=== PATIENT | male | born 1990 | race Caucasian/White ===

== ENCOUNTER → 2016-02-22 | Outpatient (CLI) | payer BC ==
--- NOTE | 2016-02-22 17:56 | DX ---
Chest, PA Upright and Lateral Views, February 22, 2016 at 5:13 p.m. Clinical History: 25-year-old male with a cough, fatigue, and shortness of breath, with dyspnea ongo ing for three weeks. ICD-10 Diagnostic Codes: R05, R06.02, and R53.83. Comparison Study: None. Findings: The lungs are well-expanded, with an inspiratory depth between the 11th and 12th posterior rib levels, and there is mild central perihilar bronchial wall thickening. The above features may r eflect a virally-mediated bronchitis/bronchiolitis, however, reactive airways' disease could have a s imilar appearance. There is no focal alveolar consolidation, pleural effusion, peripheral interstiti al edema, or pneumothorax. The trachea is midline. The osseous structures are age-appropriate. Impression: Lung hyperexpansion and mild perihilar bronchial wall thickening, but no focal infiltrat e.
== END ==
LOC: FIMAGING 17:10
PROVIDERS: ATTEND Nurse Practitioner Family
DX: R05 Cough (principal)

== ENCOUNTER 2016-03-01 11:52 | Inpatient (IN) | payer BC ==
--- NOTE | 2016-03-01 12:19 | CPEKG ---
Heart Rate: 129 RR Interval: 465 P-R Interval: 148 QRSD Interval: 88 QT Interval: 308 QTC Interval: 452 P Wolsey: 87 QRS Wolsey: 77 T Wave Wolsey: -55 EKG Severity - ABNORMAL ECG - EKG Impression: SINUS TACHYCARDIA EKG Impression: ABNORMAL T, CONSIDER ISCHEMIA, INFERIOR LEADS Electronically Signed By: Linda Medrano 01-Mar-2016 16:50:18
[2016-03-01] MEDS ORDERED: NS 1,000 ML IV ONE ×2 (12:23→14:49)
[2016-03-01 12:29] LABS: % IMMATURE GRANULYOCYTES 0.7 % (0.0-1.1); ABSOLUTE IMMATURE GRANULOCYTES 0.08 10^3/uL (0.00-0.10); ADD DIFF? NO; ADD MORPH? NO; ADD SCAN? NO; ATYPICAL LYMPHOCYTE FLAG 20 (0-99); FRAGMENT RBC FLAG 0 (0-99); HEMATOCRIT 54.4 % (40.0-51.0); HEMOGLOBIN 18.8 g/dL (13.7-17.5); LEFT SHIFT FLG 0 (0-99); LIPEMIA HEMOLYSIS FLAG 90 (0-99); MEAN CELL HEMOGLOBIN 30.7 pg (27.9-34.1); MEAN CELL HEMOGLOBIN CONCENTR. 34.6 g/dL (32.4-36.7); MEAN CELL VOLUME 88.9 fL (81.5-99.8); MEAN PLATELET VOLUME 10.2 fL (8.7-11.7); PLATELET CLUMPS FLAG 10 (0-99); PLATELET COUNT 452 10^3/uL (150-400); RED BLOOD CELL COUNT 6.12 10^6/uL (4.40-6.38); RED CELL DISTRIBUTION WIDTH 11.2 % (11.5-15.2)
[2016-03-01 12:38] LABS: ANION GAP 18 mEq/L (8-16); CARBON DIOXIDE 22 mEq/l (22-31); CHLORIDE 102 mEq/L (97-110); GLOMERULAR FILTRATION RATE > 60; GLUCOSE 151 mg/dL (70-100); POTASSIUM 5.6 mEq/L (3.5-5.2); SODIUM 142 mEq/L (134-144)
--- NOTE | 2016-03-01 12:52 | DX ---
PA and lateral chest - March 01, 2016 History: Shortness of breath. Comparison: PA and lateral chest February 22, 2016. Findings: The lungs are slightly hyperexpanded without focal consolidation. There is no pneumothora x or pleural effusion. The heart and pulmonary vasculature are normal. The bones are stable. Impression: Mild hyperexpansion which could be related to deep inspiratory effort or air-trapping.
[2016-03-01] MEDS ORDERED: IOPAMIDOL (ISOVUE 370) 100 ML BTL IV ONE (13:02)
[2016-03-01] MEDS ORDERED: HEPARIN 10,000 UNIT/10 ML MDV IVP ONE (13:29)
[2016-03-01] MEDS ORDERED: HEPARIN/DEXTROSE 500 ML IV ONE (13:29)
--- NOTE | 2016-03-01 13:34 | CT ---
CT Pulmonary Angiogram History: Chest pain, dyspnea, tachycardia.. Comparison: PA and lateral chest same day.. Technique: Axial contrast-enhanced images were obtained through the pulmonary arteries following the uneventful intravenous administration of 85 mL Isovue-370. Creatinine is 1.0. Multiplanar reformatio ns were performed through the pulmonary arteries. Dose reduction techniques were utilized. Findings: This is a good quality study with visualization of the vessels to the subsegmental level. T here are extensive bilateral pulmonary emboli, with pulmonary embolus in the distal right main pulmon claribel artery extending into segmental and subsegmental branches throughout the right lung with a high c lot burden. Left-sided pulmonary emboli extending from the distal main pulmonary artery into segmenta l and subsegmental pulmonary emboli, with a large clot burden, slightly lower than the right lung. Sc attered groundglass opacities could be related to infarct or subsegmental atelectasis. Heart size is normal. The main pulmonary artery is enlarged. There is bowing of the interventricular septum suggest ing right heart strain. The aorta is normal caliber without dissection. No pathologically enlarged ly mph nodes are identified. The bones are normal. Visualized structures in the upper abdomen are normal. Impression: 1. Extensive bilateral pulmonary emboli with evidence of right heart strain. 2. Scattered groundglass opacities may be related to atelectasis/infarct. 3. Enlarged main pulmonary artery suggesting pulmonary artery hypertension. 4. Additional findings as above. Findings discussed with Dr. Linda Medrano today at 1328 hours.
[2016-03-01] MEDS ORDERED: HEPARIN 10,000 UNIT/10 ML MDV ONE (13:37)
[2016-03-01 13:42] LABS: INR 1.17 (0.83-1.16); PROTIME(PATIENT) 14.9 SEC (12.0-15.0)
[2016-03-01 13:43] LABS: APTT 32.4 SEC (23.0-38.0)
--- NOTE | 2016-03-01 13:46 | EDPHY ---
H & P Stated Complaint: sob x 1 week, seen here for same inhaler not working Time Seen by Provider: 03/01/16 12:17 HPI/ROS: CHIEF COMPLAINT: Short of breath HISTORY OF PRESENT ILLNESS: This is a healthy 25-year-old male who presents with almost 2 weeks of worsening shortness of breath. He was seen on the 13th of this month and had a normal chest x-ray at that time. However, shortness of breath has persisted. He has not had cough. He denies chest pain. No recent trauma. No history of venous thromboembolism and no known risk factors for VTE. He was referred by Dr. Cathleen Rowan who saw him in the office today and found him to have a room air pulse ox of 82%. REVIEW OF SYSTEMS: A ten point review of systems was performed and is negative with the exception of the items mentioned in the HPI. He reports headache yesrterday. Source: Patient Exam Limitations: No limitations - Personal History Current Tetanus/Diphtheria Vaccine: Unsure Current Tetanus Diphtheria and Acellular Pertussis (TDAP): Unsure - Medical/Surgical History Hx Asthma: No Hx Chronic Respiratory Disease: No Hx Diabetes: No Hx Cardiac Disease: No Hx Renal Disease: No Hx Cirrhosis: No Hx Alcoholism: No Hx HIV/AIDS: No Hx Splenectomy or Spleen Trauma: No Other PMH: denies - Family History Significant Family History: No pertinent family hx - Social History Smoking Status: Never smoked Alcohol Use: Occasionally Drug Use: None, Marijuana Additional Social History: He works in construction. He does not use tobacco products. He smokes marijuana occasionally. - Physical Exam Exam: General Appearance: Alert. Vital signs reviewed. Heart rate in the 130s, respiratory rate around 30, Eyes: Pupils equal and round, no conjunctival injection, no discharge. Anicteric. ENT, Mouth: Mucous membranes are moist, no oropharyngeal erythema or edema. Neck: No lymphadenopathy, supple. Trachea midline, no JVD. Respiratory: Lungs are clear to auscultation; no wheezes, rales, or rhonchi. Cardiovascular: Tachycardic; no murmur, rub, or gallop. Gastrointestinal: Abdomen is soft and nontender, no masses or organomegaly, bowel sounds normal. Skin: Warm and dry, no rashes on exposed skin, slightly pale. Back: Nontender to palpation over the thoracolumbar spine. No CVAT. Extremities: No lower extremity edema, no calf tenderness or swelling. Neurological: Alert and oriented. Moving all four extremities easily and equally. Psychiatric: Anxious affect. Constitutional: Initial Vital Signs Temperature (C) 36.0 C 03/01/16 11:57 Heart Rate 144 H 03/01/16 11:57 Respiratory Rate 24 H 03/01/16 11:57 Blood Pressure 115/72 03/01/16 11:57 O2 Sat (%) 89 L 03/01/16 11:57 O2 Delivery Mode Room Air O2 (L/minute) 10 Allergies/Adverse Reactions: No Known Allergies Allergy (Unverified 03/01/16 11:56) Home Medications: Medication Instructions Recorded Albuterol [Proventil Inhaler HFA 1 - 2 puffs IH Q4H PRN 03/01/16 (*)] Medical Decision Making - Diagnostics EKG Interpretation: 12 lead EKG is interpreted in Trace master View by emergency department physician. Sinus tachycardia with Q-waves in the 2, 3, and AVF leads. Imaging: Two-view chest x-ray does not show pneumothorax or infiltrate. I reviewed the films in PACs. CT angiogram of the chest reported to me as showing bilateral pulmonary emboli with interventricular septal bulging suggestive of right heart strain. ED Course/Re-evaluation: Healthy 25-year-old male with progressively worsening dyspnea. His chest x-ray is normal and does not show pneumothorax. Study was followed immediately by CT angiogram which shows bilateral pulmonary emboli with interventricular septal bowing suggesting right heart strain. He is being started on IV heparin. He is being admitted to the hospitalist service to a step-down bed. He continues with tachypnea, tachycardia, and hypoxia. Echocardiogram is planned, as is hypercoagulable work up. Thrombolysis might be considered. Differential Diagnosis: Shortness of breath including but not limited to pulmonary infectious process, COPD, asthma, pulmonary embolus and congestive heart failure. Critical Care Time: I spent a total of 30 minutes of critical care time in obtaining history, performing a physical exam, bedside monitoring of interventions, collecting and interpreting tests and discussion with consultants but not including time spent performing procedures. He had altered vital signs and was at risk of respiratory and cardiac decompensation. - Data Points Laboratory Results: Laboratory Results 03/01/16 12:15 03/01/16 12:15 Medications Given: Discontinued Medications Heparin Sodium (Porcine) (Heparin Injection) 0 unit IVP EDNOW ONE PRN Reason: Protocol Stop: 03/01/16 13:30 Last Admin: 03/01/16 14:03 Dose: 4,000 unit Sodium Chloride (Ns) 1,000 mls @ 0 mls/hr IV ONCE ONE PRN Reason: Wide Open Stop: 03/01/16 12:24 Last Admin: 03/01/16 12:42 Dose: 1,000 mls Heparin Sodium (Porcine) (Heparin 50 Units/Ml (Premix)) 500 mls @ 0 mls/hr IV EDNOW ONE; Per Protocol PRN Reason: Protocol Stop: 03/01/16 13:30 Last Admin: 03/01/16 14:04 Dose: 500 mls Sodium Chloride (Ns) 1,000 mls @ 500 mls/hr IV ONCE ONE Stop: 03/01/16 16:48 Last Admin: 03/01/16 20:08 Dose: Not Given Alteplase, Recombinant 100 mg/ (Sodium Chloride) 300 mls @ 0 mls/hr IV ONCE ONE PRN Reason: As Directed Stop: 03/01/16 18:47 Last Admin: 03/01/16 20:31 Dose: 300 mls Departure - Departure Disposition: [facility] Acute Clinical Impression: Pulmonary emboli Qualifiers: Qualifier Code: (I26.99) Other pulmonary embolism without acute cor pulmonale Condition: Fair
[2016-03-01] MEDS ORDERED: ONDANSETRON DISINTEGRATING 4 MG TAB PO PRN (14:15)
[2016-03-01] MEDS ORDERED: TEMAZEPAM 15 MG CAP PO PRN (14:15)
[2016-03-01] MEDS ORDERED: ACETAMINOPHEN 325 MG TAB PO PRN (14:15)
[2016-03-01] MEDS ORDERED: oxyCODONE IR 5 MG TAB PO PRN (14:15)
[2016-03-01] MEDS ORDERED: ONDANSETRON 4 MG/2 ML VIAL IVP PRN (14:15)
[2016-03-01] MEDS ORDERED: NS 1,000 ML IV SCH (14:15)
[2016-03-01] MEDS ORDERED: HEPARIN 10,000 UNIT/10 ML MDV IVP PRN (14:17)
--- NOTE | 2016-03-01 15:24 | GHP ---
[f rep st] HISTORY AND PHYSICAL DATE OF ADMISSION: 03/01/2016 CHIEF COMPLAINT: Shortness of breath. HISTORY OF PRESENT ILLNESS: This is a 25-year-old man who was seen 1 week ago in the Emergency Department for shortness of breath, who presents with shortness of breath. He tells me this started 2 weeks ago, associated with some chest tightness. There was no preceding travel. He has no family history of clots. He has no weight loss. He has had some night sweats since the clot started, but he was completely healthy before this. He has been given an inhaler on his previous visit here, which did not seem to help. He was he has been unable to work for the past 2 weeks. PAST MEDICAL/SURGICAL HISTORY: Shoulder arthroscope. MEDICATIONS: Albuterol inhaler. ALLERGIES: None. FAMILY HISTORY: No history of clots. SOCIAL HISTORY: He drinks alcohol. He does not smoke. REVIEW OF SYSTEMS: A 10-point review of systems is conducted and is negative, except per HPI. PHYSICAL EXAM: VITAL SIGNS: Blood pressure 116/81, heart rate initially 144, now down to 112, respiration rate 28, saturating 99% on OxyMask, initially 89% on room air, temperature is 36.0. GENERAL: The patient is a pleasant man who appears moderate to severely uncomfortable with shortness of breath. HEENT: Shows him to be non nonicteric. CARDIOVASCULAR: Exam shows regular rate and rhythm. No murmurs, rubs, or gallops. PULMONARY: Exam shows him to be quite dyspneic. He is breathing about 30 to 35 times a minute. Lungs are clear bilaterally. ABDOMEN: Soft, nontender, nondistended. SKIN: Exam shows no rash. : Exam shows no Berrios. NEUROLOGIC: Exam shows him to be alert and oriented x3. He is moving all extremities. PSYCHIATRIC: Exam shows normal mood and affect. LABS: White count is 11.8 (this is 75% neutrophils), his hemoglobin is 18.7, platelets are 452. INR is 1.17. Troponin is 0.190. BNP is 4428. Basic metabolic panel shows a potassium of 5.6; repeat was 4.5. DATA: 1. I discussed this with Dr. Medrano. Will admit to Step-Down. 2. I reviewed his CT angiogram. It shows extensive bilateral pulmonary emboli with evidence of right heart strain, scattered ground-glass opacities, enlarged main pulmonary artery, and additional findings as above. 3. EKG, which I personally viewed and interpreted, shows sinus tachycardia. He has deep, inverted Q-waves in leads 2, 3 and aVF. He has a normal axis. IMPRESSION AND PLAN: This is a 25-year-old man admitted with pulmonary emboli: He is quite sick from this. He was very tachycardic and hypoxic. His blood pressure is currently normal, though will follow this closely. He has been started on a heparin drip. I note that he has elevated cell counts which may be dehydration, though may also indicate an underlying marrow disorder such as polycythemia vera. I will check a hypercoagulable panel. I will check a JAK2 mutation and an EPO level. We will place him in the Step-Down Unit to monitor him closely. If he decompensates, he will need IV tPA lysis. I have ordered an echocardiogram, lower extremity ultrasounds as well. BILLING: I spent 40 minutes of critical care time directly involved with the patient's care. ADDENDUM: Called by Dr Red regarding echo findings of RVSP 88mmHg. Discussed with Dr Denton - we will proceed with tPA lysis. /[id number]/MODL MTDD
--- NOTE | 2016-03-01 15:56 | US ---
Bilateral Lower Extremity Ultrasound and Venous Duplex Doppler Study History: Pulmonary embolus. Assess for DVT. Comparison: None available. Technique: High frequency transducer was used for imaging and Doppler study of the veins of the righ t and left lower extremities. Pulsed Doppler and color Doppler were utilized, along with various ma neuvers to assess flow in the veins. Findings: Right: The deep veins of the right lower extremity are normally compressible between the groin and th e upper calf. They have normal Doppler waveforms within them. No venous thrombosis is identified. Left: The deep veins of the left lower extremity are normally compressible between the groin and the upper calf. They have normal Doppler waveforms within them. No venous thrombus is identified. Impression: No evidence of deep vein thrombosis in the lower extremities.
--- NOTE | 2016-03-01 18:35 | ECHO ---
[id number] + + [phone] : : [place] [address] : : [phone] + + Adult Echocardiographic Report + --+ :Name: CODY STERLING Bartolo JStudy Date: 03/01/2016 04:47 PM : : Hospital Admission Number: [id number] : :: 1990 Gender: Male Height: 72 in : :Age: 25 yrs Race: WH Weight: 147 lb : :Reason For Study: Eval LV / RV function : : BSA: 1.9 meter s2: :History: Bilateral PE, SOB : + --+ MMode/2D Measurements & Calculations IVSd: 0.65 cm RVDd: 4.8 cm FS: 23.9 % Ao root diam: 3.1 cm LVPWd: 0.78 cm LVIDd: 3.3 cm EDV(Teich): 44.4 ml ACS: 1.3 cm LVIDs: 2.5 cm ESV(Teich): 22.7 ml EF(Teich): 48.8 % Normal Measurement Values: + + :LVIDd (3.5-5.7cm) IVSd (0.6-1.1cm) LVPWd (0.6-1.1cm) Aortic Root (2.0-3.7cm)Left Atrium (1.5-4.0cm): :LV Vol(d) (76-115ml) LV Vol(s) (29-48ml) Ejec Fraction (50-65%)PV Selvin (0.6- 1.2m/s) TV Selvin (0.4-1.0m/s) : :MV E Selvin (0.8-1.0m/s)MV A Selvin (0.3-1.0m/s)LVOT Selvin (0.7-1.2m/s) Asc Ao Selvin ( 0.9-1.8m/s) : + + Doppler Measurements & Calculations TR max selvin: 440.1 cm/sec TR max P.5 mmHg RAP systole: 10.0 mmHg RVSP(TR): 87.5 mmHg Left Ventricle The left ventricle is normal in size. There is normal left ventricular wall thickness. Left ventricular systolic function is low normal. Ejection Fraction = 50%. Flattened septum is consistent with RV pressure/volume overload. Right Ventricle The right ventricle is moderate to severely dilated. The right ventricular systolic function is severely reduced. Atria The left atrial size is normal. Right atrial size is normal. Mitral Valve The mitral valve is normal in structure and function. There is no evidence of mitral valve prolapse. There is no mitral valve stenosis. There is no mitral regurgitation noted. Tricuspid Valve Normal tricuspid valve. There is mild tricuspid regurgitation. Right ventricular systolic pressure is 88mmHg. There is Doppler evidence for severe pulmonary hypertension. Aortic Valve The aortic valve is normal in structure and function. The aortic valve is trileaflet. There is no aortic stenosis. There is no aortic insufficiency. Pulmonic Valve The pulmonic valve is normal in structure and function. There is no pulmonic valvular regurgitation. Great Vessels The aortic root is normal size. Pericardium/Pleural There is no pericardial effusion. Conclusion A complete two-dimensional transthoracic echocardiogram was performed (2D, M-mode, Doppler and color flow Doppler). Left ventricular systolic function is low normal. Flattened septum is consistent with RV pressure/volume overload. Ejection Fraction = 50%. The right ventricle is moderate to severely dilated. The right ventricular systolic function is severely reduced. The left atrial size is normal. Right atrial size is normal. The mitral valve is normal in structure and function. There is mild tricuspid regurgitation. Right ventricular systolic pressure is 88mmHg. There is Doppler evidence for severe pulmonary hypertension. The aortic valve is normal in structure and function. The aortic valve is trileaflet. There is no pericardial effusion. These findings are consistent with severe and probably acute pulmonary hypertension. The acute RV dilation and dysfunction are compressing the left ventricle and resulting in compromise of LV function as well. This patient may benefit from lytic therapy if no contraindications exsist. Final Reading Physician: Kimberlee Bravo signed on 03/01/2016 06:33 PM Ordering Physician: Mannie Charles Performed By: Virgilio Mcneal, MARICELCS
[2016-03-01] MEDS ORDERED: ALTEPLASE 100 MG in NS 200 ML IV ONE (18:46)
--- NOTE | 2016-03-01 20:02 | CT ---
Contrast-enhanced Head CT Indication: Headache. Pre-TPA administration.. Technique: Standard axial CT images of the head were performed. Patient had previously received IV contrast for CT chest. Dose reduction techniques were utilized. Findings: The superior sagittal sinus, transverse sinuses, and straight sinus all appear hyperdense compatible with recent IV contrast administration. The arterial vessels of the brain including the b asilar artery also demonstrate hyperdensity. No intracranial hemorrhage, mass or mass effect. Ventricles are appropriate in size and shape. The p aranasal sinuses are clear. Impression: Hyperdense venous and arterial structures within the brain compatible with recent iodin ated contrast administration. No features of intracranial hemorrhage. Negative CT head.
--- NOTE | 2016-03-01 20:15 | GCON ---
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 HISTORY OF PRESENT ILLNESS: The patient is a very pleasant 25-year-old white male without past medic al history. He presented the emergency room 1 week prior with increased breathlessness. He was sent home with an inhaler. He returns with worsening breathlessness, as well as a headache. He has not been able to work for the last 2 days. He describes the chest tightness, but no km chest pain. T here was no fever, no night sweats. The headache is fairly recent. He denies any recent travel and he has remained somewhat active. PAST MEDICAL HISTORY: None. PAST SURGICAL HISTORY: Shoulder arthroscopy. ALLERGIES: No known allergies to medications. SOCIAL HISTORY: No history of tobacco use. He drinks alcohol infrequently. PHYSICAL EXAM: VITAL SIGNS: Blood pressure is 100/66, pulse is 112, respirations 28, temperature is 36.4, oxygen saturation 100% on 10 L OxyMask. GENERAL: He is a well-developed, well-nourished, 25- year-old male, who is resting comfortably in no acute distress. HEENT: Eyes are PERRL, EOMI. Throa t shows no erythema or tonsillar hypertrophy. NECK: Supple. There is no cervical adenopathy. HEAR T: Regular rate and rhythm with a loud P2 component. LUNGS: Showed diminished breath sounds, but n o wheeze. ABDOMEN: Soft, nontender. Bowel sounds are present in all 4 quadrants. EXTREMITIES: Sh ow no clubbing, cyanosis, or edema. He has a negative Homans sign. LABORATORIES: White count is 11, hemoglobin is 18, hematocrit 55, platelet count is 452. INR is 1.17. Fibrinogen 518. D-dimer is elevated at 6.26. Sodium is 142, potassium is 5.6, chloride 102, CO2 is 22, BUN 10, creatinine 1, glucose is 151. Troponins are mildly elevated. BNP is mildly elevated at 4420. CT scan of the chest shows extensive pulmonary embolism with evidence of right heart strain. Echocardiogram shows an ejection fraction 50%, moderate to severely dilated right ventricle, the righ t ventricular systolic pressure is 88. IMPRESSION: 1. Acute pulmonary embolism. This is extensive. 2. Severe pulmonary hypertension on echocardiogram. 3. Headache. RECOMMENDATION: 1. Agree with hypercoagulable workup. 2. Agree with CT scan of the head. 3. Patient is currently on heparin, would hold this for now. 4. Would start tPA as soon as possible. 5. Agree with workup for possible polycythemia vera. I have discussed the case with the patient as well as the patient's family. Thank you very much. /[id number]/MODL
[2016-03-01] MEDS ORDERED: LORazepam 2 MG/ML INJ IVP PRN (21:10)
[2016-03-02 06:17] LABS: % IMMATURE GRANULYOCYTES 0.2 % (0.0-1.1); ABSOLUTE IMMATURE GRANULOCYTES 0.02 10^3/uL (0.00-0.10); ADD DIFF? NO; ADD MORPH? NO; ADD SCAN? NO; ATYPICAL LYMPHOCYTE FLAG 30 (0-99); FRAGMENT RBC FLAG 0 (0-99); HEMATOCRIT 44.1 % (40.0-51.0); HEMOGLOBIN 15.5 g/dL (13.7-17.5); LEFT SHIFT FLG 0 (0-99); LIPEMIA HEMOLYSIS FLAG 90 (0-99); MEAN CELL HEMOGLOBIN 31.4 pg (27.9-34.1); MEAN CELL HEMOGLOBIN CONCENTR. 35.1 g/dL (32.4-36.7); MEAN CELL VOLUME 89.5 fL (81.5-99.8); MEAN PLATELET VOLUME 10.7 fL (8.7-11.7); PLATELET CLUMPS FLAG 10 (0-99); PLATELET COUNT 303 10^3/uL (150-400); RED BLOOD CELL COUNT 4.93 10^6/uL (4.40-6.38); RED CELL DISTRIBUTION WIDTH 11.3 % (11.5-15.2)
[2016-03-02 06:33] LABS: ANION GAP 10 mEq/L (8-16); CALCIUM 9.1 mg/dL (8.5-10.4); CARBON DIOXIDE 24 mEq/l (22-31); CHLORIDE 105 mEq/L (97-110); CREATININE 0.9 mg/dL (0.7-1.3); GLOMERULAR FILTRATION RATE > 60; GLUCOSE 96 mg/dL (70-100); POTASSIUM 4.6 mEq/L (3.5-5.2); SODIUM 139 mEq/L (134-144)
[2016-03-02 06:42] LABS: TROPONIN I 0.084 ng/mL (0-0.034)
--- NOTE | 2016-03-02 09:16 | PDINTPN ---
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 Subjective: Looks and feels much improved. No dyspnea Objective: Vital Signs Temp Pulse Resp BP Pulse Ox 36.9 C 80 14 106/61 95 03/02/16 00:15 03/02/16 07:53 03/02/16 07:53 03/02/16 07:53 03/02/16 07:53 Laboratory Results 03/02/16 06:00 03/02/16 06:00 03/01/16 03/02/16 03/03/16 05:59 05:59 05:59 Intake Total 2330.7 Output Total 1000 Balance 1330.7 PT 14.9 SEC (12.0-15.0) 03/01/16 12:15 INR 1.17 (0.83-1.16) H 03/01/16 12:15 Physical Exam - Physical Exam General Appearance: alert, no apparent distress EENT: PERRL/EOMI, normal ENT inspection, pharynx normal, TMs normal Neck: non-tender Respiratory: chest non-tender, lungs clear, normal breath sounds Cardiac/Chest: normal peripheral pulses, regular rate, rhythm, other (loud p2) Peripheral Pulses: 2+: carotid (R), carotid (L), femoral (R), femoral (L), dorsalis-pedis (R), dorsalis-pedis (L) Abdomen: normal bowel sounds, non-tender, soft Male Genitalia: deferred Rectal: deferred Back: Normal inspection Skin: normal color, warm/dry Extremities: normal range of motion, non-tender, normal inspection, normal capillary refill Neuro/Psych: no motor/sensory deficits, alert, normal mood/affect, oriented x 3 ICD10 Worksheet Patient Problems: Problems Problem Status Diagnosed Pulmonary emboli Acute
--- NOTE | 2016-03-02 15:30 | HOSPPROG ---
Hospitalist Progress Note Assessment/Plan: * large pulmonary embolism with right heart strain * status post tPA * doing well * on IV heparin * hypercoagulable panel pending * severe pulmonary hypertension * due to above * repeat echo tomorrow Subjective: feels a lot better. No dyspnea. No chest pain Objective: Vital Signs Temp Pulse Resp BP Pulse Ox 36.6 C 94 20 104/62 97 03/02/16 12:45 03/02/16 14:45 03/02/16 14:45 03/02/16 14:45 03/02/16 14:45 Laboratory Results 03/02/16 06:00 03/02/16 06:00 03/01/16 03/02/16 03/03/16 05:59 05:59 05:59 Intake Total 2330.7 Output Total 1000 Balance 1330.7 PT 14.9 SEC (12.0-15.0) 03/01/16 12:15 INR 1.17 (0.83-1.16) H 03/01/16 12:15 - Physical Exam Constitutional: no apparent distress, appears nourished, not in pain Eyes: anicteric sclera, EOMI Ears, Nose, Mouth, Throat: moist mucous membranes, hearing normal Cardiovascular: regular rate and rhythym, no murmur, rub, or gallop Respiratory: no respiratory distress, no rales or rhonchi, clear to auscultation Skin: warm Neurologic: AAOx3 Psychiatric: interacting appropriately, not anxious, not encephalopathic, thought process linear ICD10 Worksheet Patient Problems: Problems Problem Status Diagnosed Pulmonary emboli Acute
[2016-03-02] MEDS: HEPARIN/DEXTROSE 500 ML IV SCH (15:38)
--- NOTE | 2016-03-03 08:24 | PDINTPN ---
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 Subjective: Resting comfortably. No pain. No dyspnea Objective: Vital Signs Temp Pulse Resp BP Pulse Ox 36.5 C 58 L 18 99/54 L 95 03/03/16 08:00 03/03/16 08:00 03/03/16 08:00 03/03/16 08:00 03/03/16 08:00 Laboratory Results 03/02/16 06:00 03/02/16 06:00 03/02/16 03/03/16 03/04/16 05:59 05:59 05:59 Intake Total 2330.7 1829 Output Total 1000 Balance 1330.7 1829 PT 14.9 SEC (12.0-15.0) 03/01/16 12:15 INR 1.17 (0.83-1.16) H 03/01/16 12:15 Physical Exam - Physical Exam General Appearance: alert, no apparent distress EENT: PERRL/EOMI, normal ENT inspection, pharynx normal, TMs normal Neck: non-tender, full range of motion, supple, normal inspection Respiratory: chest non-tender, lungs clear, normal breath sounds Cardiac/Chest: normal peripheral pulses, regular rate, rhythm Peripheral Pulses: 2+: carotid (R), carotid (L), femoral (R), femoral (L), dorsalis-pedis (R), dorsalis-pedis (L) Abdomen: normal bowel sounds, non-tender, soft Male Genitalia: deferred Rectal: deferred Skin: normal color, warm/dry Extremities: normal range of motion, non-tender, normal inspection, normal capillary refill Neuro/Psych: alert, normal mood/affect, oriented x 3 ICD10 Worksheet Patient Problems: Problems Problem Status Diagnosed Pulmonary emboli Acute
[2016-03-03] MEDS: HEPARIN/DEXTROSE 500 ML IV SCH (09:45)
--- NOTE | 2016-03-03 13:29 | ECHO ---
[id number] + + [id number] : : [place] [address] : : [phone] + + Adult Echocardiographic Report + -------+ :Name: CODY STERLING JStudy Date: 03/03/2016 09:14 AM : : Hospital Admission Number: [id number] Locati on: 245: :: 1990 Gender: Male Height: 72 in : :Age: 25 yrs Race: WH Weight: 147 lb : :Reason For Study: Compare pulmonary pressures : : BSA: 1.9 meter s2 : :History: PE, Pulmonary Htn : + -------+ MMode/2D Measurements & Calculations IVSd: 0.67 cm RVDd: 4.0 cm FS: 33.6 % Ao root diam: LVPWd: 0.72 cm LVIDd: 4.2 cm EDV(Teich): 3.1 cm LVIDs: 2.8 cm 77.0 ml ACS: 1.7 cm ESV(Teich): 28.7 ml EF(Teich): 62.8 % LVLd ap4: 8.4 cm SV(MOD-sp4): EDV(MOD-sp4): 37.0 ml 70.0 ml LVLs ap4: 7.6 cm ESV(MOD-sp4): 33.0 ml EF(MOD-sp4): 52.9 % Normal Measurement Values: + + :LVIDd (3.5-5.7cm) IVSd (0.6-1.1cm) LVPWd (0.6-1.1cm) Aortic Root (2.0-3.7cm)Left Atrium (1.5-4.0cm): :LV Vol(d) (76-115ml) LV Vol(s) (29-48ml) Ejec Fraction (50-65%)PV Selvin (0.6- 1.2m/s) TV Selvin (0.4-1.0m/s) : :MV E Selvin (0.8-1.0m/s)MV A Selvin (0.3-1.0m/s)LVOT Selvin (0.7-1.2m/s) Asc Ao Selvin ( 0.9-1.8m/s) : + + Doppler Measurements & Calculations MV E max selvin: Ao V2 max: LV V1 max: PA V2 max: 73.5 cm/sec 92.3 cm/sec 64.2 cm/sec 78.7 cm/sec MV A max selvin: Ao max PG: LV V1 max PG: PA max P.6 cm/sec 3.4 mmHg 1.6 mmHg 2.5 mmHg MV E/A: 2.3 TR max selvin: 287.8 cm/sec TR max P.1 mmHg RAP systole: 5.0 mmHg RVSP(TR): 38.1 mmHg Left Ventricle The left ventricle is normal in size. There is normal left ventricular wall thickness. Left ventricular systolic function is low normal. Ejection Fraction = 50-55%. Flattened septum is consistent with RV pressure/volume overload. Right Ventricle The right ventricle is moderately dilated. The right ventricular systolic function is moderately reduced. Atria The left atrial size is normal. The right atrium is mildly dilated. Mitral Valve The mitral valve is normal in structure and function. There is no mitral valve stenosis. There is no mitral regurgitation noted. Tricuspid Valve There is mild tricuspid regurgitation. Right ventricular systolic pressure is 43mmHg. Aortic Valve The aortic valve is normal in structure and function. The aortic valve is trileaflet. There is no aortic stenosis. Pulmonic Valve The pulmonic valve is normal in structure and function. There is no pulmonic valvular regurgitation. Great Vessels The aortic root is normal size. Pericardium/Pleural There is no pericardial effusion. Conclusion A complete two-dimensional transthoracic echocardiogram was performed (2D, M-mode, Doppler and color flow Doppler). Left ventricular systolic function is low normal. Ejection Fraction = 50-55%. Flattened septum is consistent with RV pressure/volume overload. The right ventricle is moderately dilated. The right ventricular systolic function is moderately reduced. Mild RA dilation The mitral valve is normal in structure and function. There is mild tricuspid regurgitation. Right ventricular systolic pressure is 43mmHg. The aortic valve is normal in structure and function. The aortic valve is trileaflet. The pulmonic valve is normal in structure and function. There is no pericardial effusion. Compared with 03/01/2016, estimated PA systolic pressure is lower. RV size and systolic function are slightly improved Final Reading Physician: Dr Eugenia Salazar electronically signed on 03/03/2016 01:28 PM Ordering Physician: Eloy Denton Performed By: Virgilio Mcneal, MARICELCS
[2016-03-03 14:53] LABS: PROTEIN S ACTIVITY 132 % (65 - 160)
--- NOTE | 2016-03-03 15:00 | HOSPPROG ---
Hospitalist Progress Note Assessment/Plan: * large pulmonary embolism with right heart strain * status post tPA * doing well * on IV heparin * switch to newer oral anticoagulants tomorrow and possible dc * hypercoagulable panel pending * severe pulmonary hypertension * due to above * repeat echo show improvement Subjective: feels good. no dyspnea Objective: Vital Signs Temp Pulse Resp BP Pulse Ox 36.6 C 79 16 113/72 93 03/03/16 11:43 03/03/16 11:43 03/03/16 11:43 03/03/16 11:43 03/03/16 11:43 Laboratory Results 03/02/16 06:00 03/02/16 06:00 03/02/16 03/03/16 03/04/16 05:59 05:59 05:59 Intake Total 2330.7 1829 Output Total 1000 Balance 1330.7 1829 PT 14.9 SEC (12.0-15.0) 03/01/16 12:15 INR 1.17 (0.83-1.16) H 03/01/16 12:15 - Physical Exam Constitutional: no apparent distress, appears nourished, not in pain Eyes: anicteric sclera, EOMI Ears, Nose, Mouth, Throat: moist mucous membranes Respiratory: no respiratory distress Neurologic: AAOx3 Psychiatric: interacting appropriately, not anxious, not encephalopathic, thought process linear ICD10 Worksheet Patient Problems: Problems Problem Status Diagnosed Pulmonary emboli Acute
[2016-03-04] MEDS: HEPARIN/DEXTROSE 500 ML IV SCH (02:32)
[2016-03-04 03:51] VITALS: O2SAT 97
[2016-03-04 04:44] LABS: % IMMATURE GRANULYOCYTES 0.2 % (0.0-1.1); ABSOLUTE IMMATURE GRANULOCYTES 0.01 10^3/uL (0.00-0.10); ADD DIFF? NO; ADD MORPH? NO; ADD SCAN? NO; ATYPICAL LYMPHOCYTE FLAG 20 (0-99); FRAGMENT RBC FLAG 0 (0-99); HEMATOCRIT 39.4 % (40.0-51.0); HEMOGLOBIN 13.8 g/dL (13.7-17.5); LEFT SHIFT FLG 0 (0-99); LIPEMIA HEMOLYSIS FLAG 90 (0-99); MEAN CELL HEMOGLOBIN 31.8 pg (27.9-34.1); MEAN CELL VOLUME 90.8 fL (81.5-99.8); MEAN PLATELET VOLUME 10.5 fL (8.7-11.7); PLATELET CLUMPS FLAG 0 (0-99); PLATELET COUNT 288 10^3/uL (150-400); RED BLOOD CELL COUNT 4.34 10^6/uL (4.40-6.38); RED CELL DISTRIBUTION WIDTH 11.2 % (11.5-15.2)
[2016-03-04 04:46] LABS: ANION GAP 11 mEq/L (8-16); CALCIUM 9.2 mg/dL (8.5-10.4); CARBON DIOXIDE 25 mEq/l (22-31); CHLORIDE 106 mEq/L (97-110); CREATININE 0.7 mg/dL (0.7-1.3); GLOMERULAR FILTRATION RATE > 60; GLUCOSE 93 mg/dL (70-100); POTASSIUM 4.2 mEq/L (3.5-5.2); SODIUM 142 mEq/L (134-144)
[2016-03-04 08:07] VITALS: BP 102/62; PULSE 60; RESP 18; TEMP 98
--- NOTE | 2016-03-04 09:26 | SOAPPROG ---
SOAP Progress Note Assessment/Plan: Assessment/Plan: * Acute, extensive PE-S/P TPA -stop heparin drip -hypercoag workup pending -start Eliquis today * Severe pulmonary HTN-markedly better. RVSP down from 88 to 43 mm hg -repeat echo today * Dispo-okay for home today Subjective: resting comfortably Objective: Vital Signs Temp Pulse Resp BP Pulse Ox 36.7 C 60 18 102/62 97 03/04/16 08:05 03/04/16 08:05 03/04/16 08:05 03/04/16 08:05 03/04/16 08:05 Laboratory Results 03/04/16 03:47 03/04/16 03:47 03/03/16 03/04/16 03/05/16 05:59 05:59 05:59 Intake Total 1829 936.00 Balance 1829 936.00 PT 14.9 SEC (12.0-15.0) 03/01/16 12:15 INR 1.17 (0.83-1.16) H 03/01/16 12:15 Physical Exam - Physical Exam General Appearance: alert, no apparent distress EENT: PERRL/EOMI, normal ENT inspection, pharynx normal, TMs normal Neck: non-tender, full range of motion, supple, normal inspection Respiratory: chest non-tender, lungs clear, normal breath sounds Cardiac/Chest: normal peripheral pulses, regular rate, rhythm Peripheral Pulses: 2+: carotid (R), carotid (L), femoral (R), femoral (L), dorsalis-pedis (R), dorsalis-pedis (L) Abdomen: normal bowel sounds, non-tender, soft Male Genitalia: deferred Rectal: deferred Skin: normal color, warm/dry Extremities: normal range of motion, non-tender, normal inspection, normal capillary refill Neuro/Psych: no motor/sensory deficits, alert, normal mood/affect, oriented x 3 ICD10 Worksheet Patient Problems: Problems Problem Status Diagnosed Pulmonary emboli Acute
[2016-03-04 09:28] LABS: PROTEIN C ACTIVITY 122 % (70 - 150)
[2016-03-04] MEDS ORDERED: APIXABAN 5 MG TAB PO SCH (09:30)
--- NOTE | 2016-03-04 11:10 | PDDCSUM ---
Discharge Summary Discharge Summary: DISCHARGE DIAGNOSES: # ACUTE PULMONARY EMBOLISM COMPLICATED BY SEVERE PULMONARY HYPERTENSION AND PULMONARY INFARCTS # IMPROVED PULMONARY HYPERTENSION AFTER THROMBOLYSIS CONSULTANTS: Dr. Eloy Denton PROCEDURES: -CT SCAN OF CHEST WITH IV CONTRAST ANGIOGRAPHIC TECHNIQUE -SYSTEMIC THROMBOLYSIS, UNCOMPLICATED HOSPITAL COURSE SUMMARY: This patient without history or family history of thromboembolic disease presented to the hospital with shortness of breath and chest pain was found to have severe pulmonary embolism with hypotension and severe pulmonary hypertension. There were pulmonary infarcts present. His initial right ventricular systolic pressure was 88. The patient received systemic infusion of thrombolysis with tPA and responded very well to this without any bleeding or other complications. On follow-up echocardiogram his pulmonary pressures dropped to 43. He has had a significant improvement in his symptoms and is point has no pain or shortness of breath and is ambulating without difficulty. He is tolerating anticoagulation well here in the hospital also. There was nothing about his history examination to suggest an autoimmune or inflammatory illness or malignancy at this time. PENDING TEST RESULTS: Hypercoagulation panel MEDICATION CHANGES: Addition of Eliquis 5 mg p.o. twice daily FOLLOW-UP PLAN: With Dr. Denton in 2 weeks INSTRUCTIONS: The patient is given warnings and instructions regarding bleeding risk and avoiding activities that would cause bleeding. These also given information regarding the potential for recurrent clots and the risks of these clots if he were to stop the anticoagulation early. Greater than 35 minutes bedside and care coordination time today
[2016-03-04 14:45] LABS: INTERPRETATION See Comments (())
[2016-03-05 16:24] LABS: JAK2 RESULT see interpretation (()); JAK2 V617F MUTATION DETECTION See Comments (())
== END 2016-03-04 14:29 | disposition home or self-care (01) | DRG 176 ==
LOC: F2N 16:04 → F1N 03-03 11:06
PROVIDERS: ADMIT Student in an Organized Health Care Education/Training Program; ATTEND Internal Medicine
DX: I26.99 Other pulmonary embolism without acute cor pulmonale (principal); I27.2 Other secondary pulmonary hypertension; R51 Headache
CPT/HCPCS: 81332-90; 81439-90; 81479-90; 82668-90; 82947-QW; 85300-90; 85303-90; 85306-90; 85520-90; 86147-90; 96374; J1644; J2405; J2997; Q9967